=== PATIENT | female | born 1980 | race Caucasian/White ===

== ENCOUNTER 2017-10-22 18:53 | Emergency (ER) | payer SELFPAY, BC | END 2017-10-22 19:05 | disposition left against medical advice (07) | LOC: FTE 18:53 | DX: Z53.21 Procedure and treatment not carried out due to patient leaving prior to being seen by health care provider (principal) ==

== ENCOUNTER 2018-02-05 15:36 | Emergency (ER) | payer BC | END 2018-02-05 17:07 | disposition home or self-care (01) | LOC: FTE 15:36 | DX: G43.909 Migraine, unspecified, not intractable, without status migrainosus (principal); H69.92 Unspecified Eustachian tube disorder, left ear; R07.9 Chest pain, unspecified | CPT/HCPCS: 93005; 99283-25 ==

== ENCOUNTER 2018-03-08 16:26 | Emergency (ER) | payer BC ==
[2018-03-08 17:42] LABS: ADD UMIC NO; UR ASCORBIC ACID NEGATIVE (NEGATIVE); UR BILIRUBIN (Dip) NEGATIVE (NEGATIVE); UR BLOOD (Dip) NEGATIVE (NEGATIVE); UR CLARITY CLEAR (CLEAR); UR COLOR STRAW (YELLOW); UR GLUCOSE (Dip) NEGATIVE (NEGATIVE); UR KETONES (Dip) NEGATIVE (NEGATIVE); UR LEUKOCYTE ESTERASE (Dip) NEGATIVE Leu/ul (NEGATIVE); UR NITRITE (Dip) NEGATIVE (NEGATIVE); UR SPECIFIC GRAVITY (Dip) 1.008 (1.003-1.030); UR TOTAL PROTEIN (Dip) NEGATIVE (NEGATIVE); UR UROBILINOGEN (Dip) NEGATIVE (NEGATIVE)
== END 2018-03-08 19:30 | disposition home or self-care (01) ==
LOC: FTE 16:26
DX: R10.2 Pelvic and perineal pain (principal)
CPT/HCPCS: 76775; 76830; 76856; 81003; 81025; 87086; 87591; 99285-25

== ENCOUNTER 2018-04-23 00:38 | Emergency (ER) | payer SELFPAY, BC | END 2018-04-23 02:14 | disposition left against medical advice (07) | LOC: FTE 00:38 | DX: Z53.21 Procedure and treatment not carried out due to patient leaving prior to being seen by health care provider (principal) ==